=== PATIENT | female | born 1945 | race Caucasian/White ===

== ENCOUNTER 2023-02-17 10:55 | Emergency (ER) | payer OTHER, SELFPAY ==
[2023-02-17] VITALS (11 sets, daily range): BP systolic 144–194; BP diastolic 70–98; PULSE 66–79; RESP 16–33; TEMP 36.6–37.2; O2SAT 94–99; BMI 20.7
--- NOTE | 2023-02-17 11:28 | PC.NURSE ---
Pt came to the emergency dept today with daughter because she has been feeling increasingly ill since 02/14/2023. Pt states that she has been feeling weak and tired and has been struggling with a cough. Daughter is at bedside and reports that everyone has been sick at their house, but today pt has been slightly confused, weak, and vomiting. Daughter also reports that pt has been more lethargic than normal and fainted. Daughter is concerned for dehydration. Pt VS WNL. Pt answers questions appropriately. Pt afebrile.
--- NOTE | 2023-02-17 12:01 | DI.RAD.S_ITS ---
PROCEDURE: XR CHEST 1V INDICATIONS: chest pain TECHNIQUE: One view of the chest was acquired. COMPARISON: None. FINDINGS: Surgical changes and devices: None. Lungs and pleura: Lungs are clear. No pleural effusions or pneumothorax. Mediastinum: Mediastinal contours appear normal. Heart size is normal. Bones and chest wall: No suspicious bony lesions. Overlying soft tissues appear unremarkable. IMPRESSION: No acute cardiopulmonary abnormality is seen. Dictated by: Morgan Odonnell M.D. on 02/17/2023 at 13:42 Approved by: Morgan Odonnell M.D. on 02/17/2023 at 13:42
[2023-02-17 12:13] LABS: Add Manual Diff / Slide Review NO; Basophils Absolute Auto 0 /uL (0-100); Basophils Percent Auto 0.7 % (0-2); Eosinophils Absolute Auto 0 /uL (0-450); Eosinophils Percent Auto 0.6 % (2-4); Hematocrit 40.5 % (36-46); Hemoglobin 14.1 g/dL (12.0-16.0); Lymphocytes Absolute Auto 900 /uL (1100-4500); Lymphocytes Percent Auto 25.8 % (25-40); Mean Corpuscular HGB Conc 34.8 % (30-36); Mean Corpuscular Hemoglobin 32.5 PG (26-34); Mean Corpuscular Volume 93.3 fL (80-100); Monocytes Absolute Auto 500 /uL (0-900); Monocytes Percent Auto 14.8 % (3-14); Neutrophils Absolute Auto 2000 /uL (1500-7000); Neutrophils Percent Auto 58.1 % (50-75); Platelet Count 239 X10^3/uL (150-400); Red Blood Cell Count 4.34 X10^6/uL (4.0-5.2); Red Cell Distribution Width 11.9 % (11.6-14.8); White Blood Cell Count 3.4 X10^3/uL (4.5-11.0)
[2023-02-17] MEDS: SODIUM CHLORIDE 0.9% 1,000 ML 1000 ML IV (12:14)
[2023-02-17 12:18] LABS: Alanine Aminotransferase 23 IU/L (<35); Albumin 4.6 g/dL (3.5-5.0); Albumin Globulin Ratio 1.4 (1.0-2.8); Alkaline Phosphatase 63 U/L (38-126); Aspartate Aminotransferase 29 IU/L (14-36); BUN Creatinine Ratio 13.9 (6-22); Bilirubin Total 0.8 mg/dL (0.2-1.3); Blood Urea Nitrogen 11 mg/dL (7-17); Calcium 9.8 mg/dL (8.4-10.2); Carbon Dioxide 29 mmol/L (22-32); Chloride 95 mmol/L (98-107); Estimated Glomerular Filt Rate > 60 mL/min (>60); Globulin 3.2 g/dL (1.7-4.1); Glucose 121 mg/dL (80-110); HEMOLYSIS < 15 (0-50); Potassium 3.7 mmol/L (3.4-5.1); Sodium 136 mmol/L (137-145); Total Protein 7.8 g/dL (6.3-8.2)
[2023-02-17 12:23] LABS: Appearance Urine UA CLEAR; Bilirubin Urine UA NEGATIVE (NEGATIVE); Color Urine UA YELLOW; Glucose Urine UA NEGATIVE (Negative); Ketones Urine UA NEGATIVE (NEGATIVE); Leukocyte Esterase Urine UA NEGATIVE (NEGATIVE); Nitrite Urine UA NEGATIVE (Negative); Occult Blood Urine UA TRACE-INTACT (Negative); Protein Urine UA NEGATIVE (Negative); Urobilinogen Urine UA 0.2 E.U./dL (0.2); pH Urine UA 7.5 (4.5-8.0)
[2023-02-17 12:26] LABS: RBC Urine 0-1/HPF (0-5/HPF)
[2023-02-17 12:27] LABS: Bacteria Urine None Seen; Culture Indicated Urine Cult Not Indicated; Squamous Epithelial Cell Urine 1-5 /HPF (0-5/HPF); WBC Urine None Seen (0-5/HPF)
--- NOTE | 2023-02-17 17:30 | ED.WEAKNESS ---
HPI - Weakness General Chief complaint: Weakness Stated complaint: dehydration, fainting Time Seen by Provider: 02/17/23 11:14 Source: patient Mode of arrival: Family Vehicle History of Present Illness HPI Narrative: 77-year-old female brought in by daughter with a chief complaint of generalized weakness fatigue and nausea as also has a headache. Had been ongoing for about a week, during this time has also had a couple of episodes of syncope while standing. She has not having chest pain or shortness of breath. She is endorsing urinary frequency. Past medical history includes hysterectomy and appendectomy recording chronic constipation denies active medical problems at present. Does have a primary care provider in the counter. Has also had some URI symptoms recently. History is obtained from the patient, her daughter is present and contributes to history Related Data Home Medications Medication Instructions Recorded Confirmed aspirin 81 mg tablet,delayed 81 mg PO DAILY 07/19/19 07/19/19 release (Adult Low Dose Aspirin) loratadine 10 mg tablet (Claritin) 10 mg PO DAILY 07/19/19 07/19/19 multivitamin (Multiple Vitamins 1 tab PO DAILY 07/19/19 07/19/19 tablet) Previous Rx's Medication Instructions Recorded ondansetron HCl 4 mg tablet 4 mg PO Q6H PRN nausea and 02/17/23 vomiting #7 tabs Allergies Allergy/AdvReac Type Severity Reaction Status Date / Time venom-honey bee Allergy Severe Anaphylaxis Verified 02/17/23 11:11 Penicillins [PENICILLINS] Allergy Unknown Unverified 02/17/23 11:11 YELLOW JACKET STINGS Allergy Intermediate HIVES Uncoded 02/17/23 11:11 Patient History Social History Smoking Status: Never smoker Smoking Status: Never smoker alcohol intake frequency: 0-2 drinks per day Substance Use Type: does not use Exam Narrative Exam Narrative: Alert no acute distress Initial Vital Signs Initial Vital Signs: Vital Signs Temperature 97.8 F 02/17/23 11:07 Pulse Rate 79 02/17/23 11:07 Respiratory Rate 16 02/17/23 11:07 Blood Pressure 144/70 H 02/17/23 11:07 Pulse Oximetry 94 02/17/23 11:07 Oxygen Delivery Method Room Air 02/17/23 11:07 HENMT Head: normocephalic and atraumatic Eyes Pupils: PERRL EOM: EOM intact bilaterally Neck Other: Neck is supple and nontender Resp Effort & Inspection: normal respiratory effort Auscultation: clear to auscultation bilaterally Cardio Other: Regular rhythm rate no murmur or gallop GI Other: Abdomen is soft and nontender no pulsatile mass normal bowel sounds Skin General: dry skin and warm Neuro Other: Alert oriented moving all 4 extremities spontaneously and equally speech is clear no facial droop or asymmetry Course Orders Ordered: ED Orders 02/17/23 11:06 Complete Blood Count AUTO DIFF Stat Comprehensive Metabolic Panel Stat 02/17/23 11:15 EKG-12 Lead Stat 02/17/23 12:01 XR chest 1V Stat 02/17/23 12:10 Urinalysis and Microscopic Stat Discontinued Medications Sodium Chloride (Normal Saline 0.9%) 1,000 mls @ 1,000 mls/hr IV BOLUS ONE Stop: 02/17/23 13:00 Last Infusion: 02/17/23 13:50 Dose: Infused Documented By: Admin: 02/17/23 12:14 Dose: 1,000 mls/hr Documented By: FORTINO Vital Signs Vital signs: Vital Signs - 8 hr 02/17/23 11:07 02/17/23 11:10 02/17/23 11:24 Temperature 97.8 F Pulse Rate 79 73 Respiratory Rate 16 Blood Pressure 144/70 H 177/80 H Pulse Oximetry 94 99 Oxygen Delivery Method Room Air 02/17/23 11:24 02/17/23 11:30 02/17/23 11:30 Temperature Pulse Rate 78 71 Respiratory Rate Blood Pressure 168/70 H Pulse Oximetry 96 98 Oxygen Delivery Method 02/17/23 12:00 02/17/23 12:00 02/17/23 12:15 Temperature Pulse Rate 67 Respiratory Rate Blood Pressure 194/84 H 160/81 H Pulse Oximetry 98 Oxygen Delivery Method 02/17/23 12:15 02/17/23 12:30 02/17/23 12:30 Temperature Pulse Rate 66 67 Respiratory Rate Blood Pressure 155/74 H Pulse Oximetry 95 98 Oxygen Delivery Method 02/17/23 13:00 02/17/23 13:00 02/17/23 13:30 Temperature Pulse Rate 66 67 Respiratory Rate 20 31 H Blood Pressure 158/98 H Pulse Oximetry 98 98 Oxygen Delivery Method 02/17/23 13:30 02/17/23 14:00 02/17/23 14:31 Temperature 98.9 F Pulse Rate 75 74 Respiratory Rate 33 H 20 Blood Pressure 174/73 H 170/70 H Pulse Oximetry 94 98 Oxygen Delivery Method Room Air MDM - Weakness Lab Data Lab results narrative: CBC with diff CMP and urinalysis are unremarkable 02/17/23 11:06 02/17/23 11:06 Labs: Lab Results 02/17/23 02/17/23 Range/Units 11:06 12:10 WBC 3.4 L (4.5-11.0) X10^3/uL RBC 4.34 (4.0-5.2) X10^6/uL Hgb 14.1 (12.0-16.0) g/dL Hct 40.5 (36-46) % MCV 93.3 (80-100) fL MCH 32.5 (26-34) PG MCHC 34.8 (30-36) % RDW 11.9 (11.6-14.8) % Plt Count 239 (150-400) X10^3/uL Neut % (Auto) 58.1 (50-75) % Lymph % (Auto) 25.8 (25-40) % [place] % (Auto) 14.8 H (3-14) % Eos % (Auto) 0.6 L (2-4) % Baso % (Auto) 0.7 (0-2) % Neut # (Auto) 2000 (8950-9418) /uL Lymph # (Auto) 900 L (3108-6925) /uL [place] # (Auto) 500 (0-900) /uL Eos # (Auto) 0 (0-450) /uL Baso # (Auto) 0 (0-100) /uL Sodium 136 L (137-145) mmol/L Potassium 3.7 (3.4-5.1) mmol/L Chloride 95 L (98-107) mmol/L Carbon Dioxide 29 (22-32) mmol/L BUN 11 (7-17) mg/dL Creatinine 0.79 (0.52-1.04) mg/dL Estimated GFR > 60 (>60) mL/min BUN/Creatinine Ratio 13.9 (6-22) Glucose 121 H (80-110) mg/dL Calcium 9.8 (8.4-10.2) mg/dL Total Bilirubin 0.8 (0.2-1.3) mg/dL AST 29 (14-36) IU/L ALT 23 (<35) IU/L Alkaline Phosphatase 63 (38-126) U/L Total Protein 7.8 (6.3-8.2) g/dL Albumin 4.6 (3.5-5.0) g/dL Globulin 3.2 (1.7-4.1) g/dL Albumin/Globulin Ratio 1.4 (1.0-2.8) Urine Color Yellow Urine Appearance Clear Urine pH 7.5 (4.5-8.0) Ur Specific [place] 1.010 (1.000-1.035) Urine Protein Negative (Negative) Urine Glucose (UA) Negative (Negative) g/dL Urine Ketones Negative (NEGATIVE) Urine Occult Blood Trace-intact (Negative) Urine Nitrate Negative (Negative) Urine Bilirubin Negative (NEGATIVE) Urine Urobilinogen 0.2 (0.2) E.U./dL Ur Leukocyte Esterase Negative (NEGATIVE) Urine RBC 0-1/hpf (0-5/HPF) Urine WBC None seen (0-5/HPF) Ur Squamous Epith Cells 1-5 /hpf (0-5/HPF) Urine Bacteria None seen (None) Ur Culture Indicated? Cult not indicated Imaging Data Chest x-ray: My Impression: Independent review of chest x-ray showed no acute disease Radiologist Impression: Radiology report indicates no acute cardiopulmonary disease ECG Data Interpretation: EKG shows normal sinus rhythm at [address] segment changes, poor R-wave progression intervals are normal no pre-excitation [time] EKG is normal sinus rhythm rate [ ] and free of any signs of ischemia or ectopy. No ST segmental elevation or depression. No T wave inversions MDM Narrative Medical decision making narrative: 77-year-old female who is feeling unwell for about a week, has had a couple of episodes of syncope, no clear infectious symptoms. Differential is broad but includes infection, with sepsis, GI bleed, cardiac dysrhythmia, electrolyte disturbance dehydration from an adequate oral intake. Overall workup today is reassuring. No major electrolyte disturbance no evidence of a significant infection no evidence of dysrhythmia are identified. Patient was discharged to home encouraged to get more fluids and follow up with her primary care provider. Indications for return to the emergency department were reviewed the with the patient and her family. Discharge Plan Departure Patient Disposition: Home Clinical Impression: Nausea Syncope Qualifiers: Syncope type: unspecified Qualified Code(s): R55 - Syncope and collapse Instructions: DI for Dehydration -- Adult, DI for Nausea -- Adult Activity Restrictions/Additional Instructions: Emergency department workup today is reassuring. No serious cause for your symptoms of headache nausea and fainting is identified. I think it is safe for you to go home. I have added ondansetron to use as needed for nausea and vomiting. Get adequate fluids, sometimes frequent small amounts are better. Continue previous home medications. Follow up soon with her primary care provider. If you are feeling faint, make sure that you sit down and perhaps even lie down soon to avoid falling. If you are having worsening symptoms such as chest pain shortness of breath severe headache uncontrolled vomiting or abdominal pain recheck in the emergency department. Prescriptions: New ondansetron HCl 4 mg tablet 4 mg PO Q6H PRN (Reason: nausea and vomiting) Qty: 7 0RF No Action multivitamin [Multiple Vitamins] Tablet 1 tab PO DAILY loratadine [Claritin] 10 mg tablet 10 mg PO DAILY aspirin [Adult Low Dose Aspirin] 81 mg tablet,delayed release (DR/EC) 81 mg PO DAILY Referrals: Martha Alvarado PA-C [Primary Care Provider] - Stand Alone Forms: Patient Portal/API
== END 2023-02-17 14:32 | disposition home or self-care (01) ==
PROVIDERS: Emergency Provider Emergency Medicine; PCP Student in an Organized Health Care Education/Training Program
DX: R55 Syncope and collapse (principal); R11.0 Nausea; R51.9 Headache, unspecified
CPT/HCPCS: 36415; 71045; 80053; 81001; 85025; 93005; 96360; 96361; 99284

== ENCOUNTER 2023-03-22 14:37 | Emergency (ER) | payer MEDICARE, SELFPAY ==
[2023-03-22] VITALS (13 sets, daily range): BP systolic 153–178; BP diastolic 66–74; PULSE 64–89; RESP 13–22; TEMP 36.6; O2SAT 94–99; BMI 18.6
[2023-03-22 16:12] LABS: Add Manual Diff / Slide Review NO; Basophils Absolute Auto 0 /uL (0-100); Basophils Percent Auto 0.5 % (0-2); Eosinophils Absolute Auto 0 /uL (0-450); Eosinophils Percent Auto 0.3 % (2-4); Hematocrit 37.8 % (36-46); Lymphocytes Absolute Auto 1400 /uL (1100-4500); Lymphocytes Percent Auto 16.4 % (25-40); Mean Corpuscular HGB Conc 34.4 % (30-36); Mean Corpuscular Hemoglobin 31.6 PG (26-34); Mean Corpuscular Volume 91.9 fL (80-100); Monocytes Absolute Auto 800 /uL (0-900); Monocytes Percent Auto 9.2 % (3-14); Neutrophils Absolute Auto 6400 /uL (1500-7000); Neutrophils Percent Auto 73.6 % (50-75); Platelet Count 321 X10^3/uL (150-400); Red Blood Cell Count 4.11 X10^6/uL (4.0-5.2); Red Cell Distribution Width 12.1 % (11.6-14.8); White Blood Cell Count 8.7 X10^3/uL (4.5-11.0)
--- NOTE | 2023-03-22 16:20 | DI.CT.S_ITS ---
PROCEDURE: CT HEAD/BRAIN WO CON INDICATIONS: alt mental status/confusion, no trauma or last known well. TECHNIQUE: Noncontrast 4.5 mm thick angled axial sections acquired from the foramen magnum to the vertex, with coronal and sagittal reformats. For radiation dose reduction, the following was used: automated exposure control, adjustment of mA and/or kV according to patient size. COMPARISON: None. FINDINGS: Image quality: Diagnostic. CSF spaces: Basal cisterns are patent. No extra-axial fluid collections. The ventricles are symmetric in size and shape. Brain: No intracranial bleeds or masses. There is cerebral volume loss for age, with resultant ventricular and sulcal prominence. There are periventricular and deep white matter chronic small vessel ischemic changes. There is intracranial internal carotid artery atherosclerosis. Skull and face: Calvarium and visualized facial bones appear intact, without suspicious lesions. Sinuses: Near complete opacification of the maxillary sinuses. IMPRESSION: No acute intracranial pathology. Dictated by: Srinivas Araiza M.D. on 03/22/2023 at 16:48 Approved by: Srinivas Araiza M.D. on 03/22/2023 at 16:49
[2023-03-22 16:27] LABS: UR Morphine/Opiate cutoff 300 Negative (Negative); Ur Creatinine Normal (Normal); Ur Specific Gravity Normal (Normal); Urine Amphetamines Negative (Negative); Urine Barbiturates Negative (Negative); Urine Benzodiazepines Negative (Negative); Urine Cocaine Negative (Negative); Urine MDMA Negative (Negative); Urine Methadone Negative (Negative); Urine Methamphetamines Negative (Negative); Urine Oxycodone Negative (Negative); Urine Phencyclidine Negative (Negative); Urine Tetrahydrocannabinol Negative (Negative); Urine Tricyclic Antidepressant Negative (Negative); Urine pH Normal (Normal)
[2023-03-22 16:28] LABS: Appearance Urine UA CLEAR; Bilirubin Urine UA NEGATIVE (NEGATIVE); Color Urine UA YELLOW; Glucose Urine UA NEGATIVE (Negative); Ketones Urine UA 1+ (NEGATIVE); Leukocyte Esterase Urine UA TRACE (NEGATIVE); Nitrite Urine UA NEGATIVE (Negative); Occult Blood Urine UA 2+ (Negative); Protein Urine UA NEGATIVE (Negative); Urobilinogen Urine UA 0.2 E.U./dL (0.2)
[2023-03-22 16:30] LABS: Alanine Aminotransferase 17 IU/L (<35); Albumin 4.7 g/dL (3.5-5.0); Albumin Globulin Ratio 1.4 (1.0-2.8); Alkaline Phosphatase 60 U/L (38-126); Aspartate Aminotransferase 27 IU/L (14-36); BUN Creatinine Ratio 13.5 (6-22); Blood Urea Nitrogen 12 mg/dL (7-17); Calcium 9.9 mg/dL (8.4-10.2); Carbon Dioxide 30 mmol/L (22-32); Chloride 94 mmol/L (98-107); Estimated Glomerular Filt Rate > 60 mL/min (>60); Globulin 3.3 g/dL (1.7-4.1); Glucose 98 mg/dL (80-110); HEMOLYSIS < 15 (0-50); Lipase 480 U/L (23-300); Potassium 3.2 mmol/L (3.4-5.1); Sodium 133 mmol/L (137-145)
[2023-03-22 16:43] LABS: Bacteria Urine Occasional (0-1); Culture Indicated Urine Specimen Cultured; RBC Urine 0-1/HPF (0-5/HPF); Squamous Epithelial Cell Urine 1-5 /HPF (0-5/HPF); Urine Volume 10mL (spun); WBC Urine 0-1/HPF (0-5/HPF)
[2023-03-22 17:07] LABS: Ammonia (NH3) < 9 umol/L (9-30)
--- NOTE | 2023-03-22 17:36 | ED.ABDPAIN ---
HPI - Abdominal Pain General Chief Complaint: Abdominal Pain Stated Complaint: abd pain. nausea, feels like poisoned, axp 1 month Time Seen by Provider: 03/22/23 17:35 Source: patient Mode of arrival: Wheelchair Limitations: no limitations Related Data Home Medications Medication Instructions Recorded Confirmed aspirin 81 mg tablet,delayed 81 mg PO DAILY 07/19/19 07/19/19 release (Adult Low Dose Aspirin) loratadine 10 mg tablet (Claritin) 10 mg PO DAILY 07/19/19 07/19/19 multivitamin (Multiple Vitamins 1 tab PO DAILY 07/19/19 07/19/19 tablet) Previous Rx's Medication Instructions Recorded ondansetron HCl 4 mg tablet 4 mg PO Q6H PRN nausea and 02/17/23 vomiting #7 tabs Allergies Allergy/AdvReac Type Severity Reaction Status Date / Time venom-honey bee Allergy Severe Anaphylaxis Verified 03/22/23 14:45 Penicillins [PENICILLINS] Allergy Unknown Verified 03/22/23 14:45 YELLOW JACKET STINGS Allergy Intermediate HIVES Uncoded 03/22/23 14:45 Review of Systems Review of Systems ROS Unobtainable: All systems reviewed & are unremarkable except as noted in HPI and below Patient History Social History Smoking Status: Never smoker Smoking Status: Never smoker alcohol intake frequency: other Substance Use Type: does not use Exam Initial Vital Signs Initial Vital Signs: Vital Signs Temperature 98 F 03/22/23 14:41 Pulse Rate 89 03/22/23 14:41 Respiratory Rate 18 03/22/23 14:41 Blood Pressure 159/70 H 03/22/23 14:41 Pulse Oximetry 98 03/22/23 14:41 Oxygen Delivery Method Room Air 03/22/23 14:41 Course Orders Ordered: ED Orders 03/22/23 14:46 EKG-12 Lead Stat 03/22/23 15:57 Complete Blood Count AUTO DIFF Stat Comprehensive Metabolic Panel Stat Lipase Stat 03/22/23 16:17 Ammonia (NH3) Stat UA dip [Urinalysis Screen (Dip Only)] Stat Urine Culture Stat Urine Drug Screen, Rapid Stat Urine Microscopic Stat 03/22/23 16:20 CT head/brain wo con Stat Ondansetron HCl (Ondansetron 4 Mg/2 Ml Inj) 4 mg IV NOW PRN PRN Reason: Nausea And Vomiting Ondansetron HCl (Ondansetron 4 Mg Odt) 4 mg PO NOW PRN PRN Reason: Nausea And Vomiting Vital Signs Vital signs: Vital Signs - 8 hr 03/22/23 14:41 03/22/23 15:52 03/22/23 16:04 Temperature 98 F Pulse Rate 89 88 73 Respiratory Rate 18 18 22 Blood Pressure 159/70 H Pulse Oximetry 98 99 Oxygen Delivery Method Room Air 03/22/23 16:04 03/22/23 16:18 03/22/23 16:18 Temperature Pulse Rate 89 Respiratory Rate Blood Pressure 161/72 H 165/74 H Pulse Oximetry 98 Oxygen Delivery Method 03/22/23 16:40 03/22/23 17:00 Temperature Pulse Rate 82 70 Respiratory Rate Blood Pressure Pulse Oximetry 94 98 Oxygen Delivery Method Room Air MDM - Abdominal Pain Lab Data 03/22/23 15:57 03/22/23 15:57 Labs: Lab Results 03/22/23 03/22/23 03/22/23 Range/Units 15:57 16:17 16:17 WBC 8.7 (4.5-11.0) X10^3/uL RBC 4.11 (4.0-5.2) X10^6/uL Hgb 13.0 (12.0-16.0) g/dL Hct 37.8 (36-46) % MCV 91.9 (80-100) fL MCH 31.6 (26-34) PG MCHC 34.4 (30-36) % RDW 12.1 (11.6-14.8) % Plt Count 321 (150-400) X10^3/uL Neut % (Auto) 73.6 (50-75) % Lymph % (Auto) 16.4 L (25-40) % [place] % (Auto) 9.2 (3-14) % Eos % (Auto) 0.3 L (2-4) % Baso % (Auto) 0.5 (0-2) % Neut # (Auto) 6400 (7587-2491) /uL Lymph # (Auto) 1400 (1408-1349) /uL [place] # (Auto) 800 (0-900) /uL Eos # (Auto) 0 (0-450) /uL Baso # (Auto) 0 (0-100) /uL Sodium 133 L (137-145) mmol/L Potassium 3.2 L (3.4-5.1) mmol/L Chloride 94 L (98-107) mmol/L Carbon Dioxide 30 (22-32) mmol/L BUN 12 (7-17) mg/dL Creatinine 0.89 (0.52-1.04) mg/dL Estimated GFR > 60 (>60) mL/min BUN/Creatinine Ratio 13.5 (6-22) Glucose 98 (80-110) mg/dL Calcium 9.9 (8.4-10.2) mg/dL Total Bilirubin 1.0 (0.2-1.3) mg/dL AST 27 (14-36) IU/L ALT 17 (<35) IU/L Alkaline Phosphatase 60 (38-126) U/L Ammonia < 9 L (9-30) umol/L Total Protein 8.0 (6.3-8.2) g/dL Albumin 4.7 (3.5-5.0) g/dL Globulin 3.3 (1.7-4.1) g/dL Albumin/Globulin Ratio 1.4 (1.0-2.8) Lipase 480 H (23-300) U/L Urine Color Yellow Urine Appearance Clear Urine pH 7.0 Normal (4.5-8.0) Ur Specific [place] 1.010 (1.000-1.035) Urine Protein Negative (Negative) Urine Glucose (UA) Negative (Negative) g/dL Urine Ketones 1+ H (NEGATIVE) Urine Occult Blood 2+ H (Negative) Urine Nitrate Negative (Negative) Urine Bilirubin Negative (NEGATIVE) Urine Urobilinogen 0.2 (0.2) E.U./dL Ur Leukocyte Esterase Trace H (NEGATIVE) Urine RBC 0-1/hpf (0-5/HPF) Urine WBC 0-1/hpf (0-5/HPF) Ur Squamous Epith Cells 1-5 /hpf (0-5/HPF) Urine Bacteria Occasional (0-1) (None) Ur Culture Indicated? Specimen cultured Vol Urine Centrifuged 10ml (spun) U Opiates 300ng/mL cut Negative (Negative) Ur Oxycodone Screen Negative (Negative) Urine Methadone Screen Negative (Negative) Ur Barbiturates Screen Negative (Negative) U Tricyclic Antidepress Negative (Negative) Ur Phencyclidine Scrn Negative (Negative) Ur Amphetamines Screen Negative (Negative) U Methamphetamines Scrn Negative (Negative) Ur MDMA Scrn (Ecstasy) Negative (Negative) U Benzodiazepines Scrn Negative (Negative) Urine Cocaine Screen Negative (Negative) U Marijuana (THC) Screen Negative (Negative) Urine Specific [place] Normal (Normal) Ur Creatinine Normal (Normal) Discharge Plan Departure Prescriptions: No Action multivitamin [Multiple Vitamins] Tablet 1 tab PO DAILY loratadine [Claritin] 10 mg tablet 10 mg PO DAILY aspirin [Adult Low Dose Aspirin] 81 mg tablet,delayed release (DR/EC) 81 mg PO DAILY ondansetron HCl 4 mg tablet 4 mg PO Q6H PRN (Reason: nausea and vomiting) Qty: 7 0RF Referrals: Martha Alvarado PAJacquieC [Primary Care Provider] -
--- NOTE | 2023-03-22 18:14 | ED_ITS ---
HPI - Abdominal Pain General Chief Complaint: Abdominal Pain Stated Complaint: abd pain. nausea, feels like poisoned, axp 1 month Time Seen by Provider: 03/22/23 17:35 Source: patient Mode of arrival: Wheelchair History of Present Illness HPI narrative: 77-year-old female presents by private vehicle from home for 1 month of nausea, decreased appetite, generalized abdominal cramping that is worse after eating. Patient states that she has lost approximately 20 lb since symptom onset due to lack of p.o. intake. She states that she wants to eat but the nausea makes her stomach cramp and then she does not eat. She has not taken any medications at home for this or seen a primary care doctor for this complaint. Related Data Home Medications Medication Instructions Recorded Confirmed aspirin 81 mg tablet,delayed 81 mg PO DAILY 07/19/19 07/19/19 release (Adult Low Dose Aspirin) loratadine 10 mg tablet (Claritin) 10 mg PO DAILY 07/19/19 07/19/19 multivitamin (Multiple Vitamins 1 tab PO DAILY 07/19/19 07/19/19 tablet) Previous Rx's Medication Instructions Recorded ondansetron HCl 4 mg tablet 4 mg PO Q6H PRN nausea and 02/17/23 vomiting #7 tabs metoclopramide HCl 10 mg tablet 10 mg PO Q6H PRN nausea and 03/22/23 (Reglan) vomiting #30 tabs metoclopramide HCl 10 mg tablet 10 mg PO Q6H PRN nausea and 03/22/23 (Reglan) vomiting #30 tabs Allergies Allergy/AdvReac Type Severity Reaction Status Date / Time venom-honey bee Allergy Severe Anaphylaxis Verified 03/22/23 14:45 Penicillins [PENICILLINS] Allergy Unknown Verified 03/22/23 14:45 YELLOW JACKET STINGS Allergy Intermediate HIVES Uncoded 03/22/23 14:45 Review of Systems Review of Systems Narrative: Negative except as noted above Patient History Social History Smoking Status: Never smoker Smoking Status: Never smoker alcohol intake frequency: 0-2 drinks per day Substance Use Type: does not use Exam Initial Vital Signs Initial Vital Signs: Vital Signs Temperature 98 F 03/22/23 14:41 Pulse Rate 89 03/22/23 14:41 Respiratory Rate 18 03/22/23 14:41 Blood Pressure 159/70 H 03/22/23 14:41 Pulse Oximetry 98 03/22/23 14:41 Oxygen Delivery Method Room Air 03/22/23 14:41 Const: Awake, alert, no acute distress, nontoxic appearing Eyes: PERRL, EOMI, conjunctiva normal ENT: Atraumatic, dentition normal, mucous membranes moist Cardiac: regular rate, regular rhythm RESP: unlabored, clear bilaterally, no wheezing GI: Atraumatic, soft, nontender, nondistended, no rebound, no guarding MSK: Atraumatic, full range of motion, pulses equal Skin: Warm, Dry, intact, no rashes Neuro: AO x3, CN II-XII grossly intact, moves all extremities Psych: affect normal, mood normal, not suicidal, not homicidal Course Orders Ordered: ED Orders 03/22/23 15:57 Complete Blood Count AUTO DIFF Stat Comprehensive Metabolic Panel Stat Lipase Stat 03/22/23 16:17 Ammonia (NH3) Stat UA dip [Urinalysis Screen (Dip Only)] Stat Urine Culture Stat Urine Drug Screen, Rapid Stat Urine Microscopic Stat 03/22/23 16:20 CT head/brain wo con Stat 03/22/23 18:27 CT abdomen pelvis w con Stat Discontinued Medications Ondansetron HCl (Ondansetron 4 Mg/2 Ml Inj) 4 mg IV NOW PRN PRN Reason: Nausea And Vomiting Ondansetron HCl (Ondansetron 4 Mg Odt) 4 mg PO NOW PRN PRN Reason: Nausea And Vomiting Vital Signs Vital signs: Vital Signs - 8 hr 03/22/23 16:40 03/22/23 17:00 03/22/23 17:12 Pulse Rate 82 70 68 Respiratory Rate Blood Pressure Pulse Oximetry 94 98 98 Oxygen Delivery Method Room Air 03/22/23 17:12 03/22/23 17:29 03/22/23 17:29 Pulse Rate 71 Respiratory Rate Blood Pressure 153/68 H 169/74 H Pulse Oximetry 98 Oxygen Delivery Method 03/22/23 17:30 03/22/23 18:00 03/22/23 18:28 Pulse Rate 69 64 79 Respiratory Rate 13 14 19 Blood Pressure Pulse Oximetry 98 97 98 Oxygen Delivery Method Room Air 03/22/23 18:28 03/22/23 18:30 03/22/23 18:30 Pulse Rate 78 Respiratory Rate 15 Blood Pressure 178/73 H 174/74 H Pulse Oximetry 98 Oxygen Delivery Method 03/22/23 18:38 03/22/23 18:38 Pulse Rate 74 Respiratory Rate Blood Pressure 163/66 H Pulse Oximetry 98 Oxygen Delivery Method Room Air MDM - Abdominal Pain Lab Data 03/22/23 15:57 03/22/23 15:57 Labs: Lab Results 03/22/23 03/22/23 03/22/23 Range/Units 15:57 16:17 16:17 WBC 8.7 (4.5-11.0) X10^3/uL RBC 4.11 (4.0-5.2) X10^6/uL Hgb 13.0 (12.0-16.0) g/dL Hct 37.8 (36-46) % MCV 91.9 (80-100) fL MCH 31.6 (26-34) PG MCHC 34.4 (30-36) % RDW 12.1 (11.6-14.8) % Plt Count 321 (150-400) X10^3/uL Neut % (Auto) 73.6 (50-75) % Lymph % (Auto) 16.4 L (25-40) % [place] % (Auto) 9.2 (3-14) % Eos % (Auto) 0.3 L (2-4) % Baso % (Auto) 0.5 (0-2) % Neut # (Auto) 6400 (4846-3560) /uL Lymph # (Auto) 1400 (4011-0641) /uL [place] # (Auto) 800 (0-900) /uL Eos # (Auto) 0 (0-450) /uL Baso # (Auto) 0 (0-100) /uL Sodium 133 L (137-145) mmol/L Potassium 3.2 L (3.4-5.1) mmol/L Chloride 94 L (98-107) mmol/L Carbon Dioxide 30 (22-32) mmol/L BUN 12 (7-17) mg/dL Creatinine 0.89 (0.52-1.04) mg/dL Estimated GFR > 60 (>60) mL/min BUN/Creatinine Ratio 13.5 (6-22) Glucose 98 (80-110) mg/dL Calcium 9.9 (8.4-10.2) mg/dL Total Bilirubin 1.0 (0.2-1.3) mg/dL AST 27 (14-36) IU/L ALT 17 (<35) IU/L Alkaline Phosphatase 60 (38-126) U/L Ammonia < 9 L (9-30) umol/L Total Protein 8.0 (6.3-8.2) g/dL Albumin 4.7 (3.5-5.0) g/dL Globulin 3.3 (1.7-4.1) g/dL Albumin/Globulin Ratio 1.4 (1.0-2.8) Lipase 480 H (23-300) U/L Urine Color Yellow Urine Appearance Clear Urine pH 7.0 Normal (4.5-8.0) Ur Specific [address] 1.010 (1.000-1.035) Urine Protein Negative (Negative) Urine Glucose (UA) Negative (Negative) g/dL Urine Ketones 1+ H (NEGATIVE) Urine Occult Blood 2+ H (Negative) Urine Nitrate Negative (Negative) Urine Bilirubin Negative (NEGATIVE) Urine Urobilinogen 0.2 (0.2) E.U./dL Ur Leukocyte Esterase Trace H (NEGATIVE) Urine RBC 0-1/hpf (0-5/HPF) Urine WBC 0-1/hpf (0-5/HPF) Ur Squamous Epith Cells 1-5 /hpf (0-5/HPF) Urine Bacteria Occasional (0-1) (None) Ur Culture Indicated? Specimen cultured Vol Urine Centrifuged 10ml (spun) U Opiates 300ng/mL cut Negative (Negative) Ur Oxycodone Screen Negative (Negative) Urine Methadone Screen Negative (Negative) Ur Barbiturates Screen Negative (Negative) U Tricyclic Antidepress Negative (Negative) Ur Phencyclidine Scrn Negative (Negative) Ur Amphetamines Screen Negative (Negative) U Methamphetamines Scrn Negative (Negative) Ur MDMA Scrn (Ecstasy) Negative (Negative) U Benzodiazepines Scrn Negative (Negative) Urine Cocaine Screen Negative (Negative) U Marijuana (THC) Screen Negative (Negative) Urine Specific [address] Normal (Normal) Ur Creatinine Normal (Normal) [facility] Narrative Medical decision making narrative: Nontoxic appearing patient presenting with 1 month of symptoms. Hemodynamically stable, abdomen is soft with no significant tenderness to deep palpation. Despite patient's reports of anorexia with marked weight loss electrolytes are fairly normal, sodium 133, potassium 3.2, chloride 94, creatinine 0.89, GFR greater than 60. CT of the abdomen shows no acute findings, incidental diverticulosis noted. Patient has been at bedside notified of all findings of labs and imaging, I counseled that I do not know the cause of the patient's persistent nausea or decrease in appetite, however no indication for admission at this time. We will trial antiemetics, which were sent to pharmacy of choice. I strongly counseled the patient that she would need to follow up with primary care physician, and recommended possible GI evaluation. Patient states that they will call her primary care physician for a GI referral. ED return precautions discussed at bedside. Patient expressed understanding of the plan and is in agreement at this time. All questions answered at the time of discharge. Discharge Plan Departure Patient Disposition: Home Clinical Impression: Abdominal pain Instructions: DI for Abdominal Pain-Adult Prescriptions: New metoclopramide HCl [Reglan] 10 mg tablet 10 mg PO Q6H PRN (Reason: nausea and vomiting) Qty: 30 0RF metoclopramide HCl [Reglan] 10 mg tablet 10 mg PO Q6H PRN (Reason: nausea and vomiting) Qty: 30 0RF No Action multivitamin [Multiple Vitamins] Tablet 1 tab PO DAILY loratadine [Claritin] 10 mg tablet 10 mg PO DAILY aspirin [Adult Low Dose Aspirin] 81 mg tablet,delayed release (DR/EC) 81 mg PO DAILY ondansetron HCl 4 mg tablet 4 mg PO Q6H PRN (Reason: nausea and vomiting) Qty: 7 0RF Referrals: Martha Alvarado PA-C [Primary Care Provider] - Stand Alone Forms: Patient Portal/API
--- NOTE | 2023-03-22 18:27 | DI.CT.S_ITS ---
PROCEDURE: CT ABDOMEN PELVIS W CON INDICATIONS: LOWER ABD PAIN, POSTPRANDIAL PAIN [id number] TECHNIQUE: After the administration of intravenous contrast, axial sections acquired from the lung bases to the pubic symphysis. Coronal and sagittal reformats were performed. For radiation dose reduction, the following was used: automated exposure control, adjustment of mA and/or kV according to patient size. COMPARISON: None. FINDINGS: Image quality: Diagnostic. Lower Chest: No significant findings. ABDOMEN: Liver: No solid mass. Liver measures 17.6 cm with mild steatosis. Gallbladder: No radiopaque gallstones or wall thickening. Biliary ducts: No biliary dilation. Pancreas: No ductal dilation. Spleen: Size is within normal limits. Adrenal Glands: No adrenal nodules. Kidneys and Ureters: No hydronephrosis. No solid mass. No complex renal cystic lesion which requires follow up. Simple bilateral renal cysts. Stomach and Bowel: Normal colonic caliber, without significant wall thickening. Colonic diverticula are present. Peritoneum: No abnormal intraperitoneal fluid. No free air. Ventral Wall: No hernia. Abdominal Nodes: No retroperitoneal or mesenteric adenopathy by size criteria. Vessels: Aorta and inferior vena cava are normal in size. PELVIS: Pelvic Organs: Unremarkable. Bladder: Unremarkable. Pelvic Nodes: No enlarged lymph nodes. Miscellaneous: No inguinal hernias are seen. Bones: No aggressive osseous abnormality. IMPRESSION: No acute intra-abdominal or pelvic process. Diverticulosis. Dictated by: Rosa Fay M.D. on 03/22/2023 at 18:50 Approved by: Rosa Fay M.D. on 03/22/2023 at 18:52
== END 2023-03-22 19:25 | disposition home or self-care (01) ==
PROVIDERS: Emergency Medicine; Emergency Provider Emergency Medicine; PCP Student in an Organized Health Care Education/Training Program
DX: R10.84 Generalized abdominal pain (principal)
CPT/HCPCS: 36415; 70450; 74177; 80053; 80305; 81003; 81015; 82140; 83690; 85025; 87086; 93005; 99283; 99284

== ENCOUNTER 2023-03-29 18:27 | Emergency (ER) | payer OTHER, SELFPAY ==
[2023-03-29 18:38] VITALS: BP 113/71; PULSE 85; RESP 14; TEMP 36.6; O2SAT 98; BMI 17.9
[2023-03-29 19:41] LABS: Add Manual Diff / Slide Review NO; Basophils Absolute Auto 0 /uL (0-100); Basophils Percent Auto 0.4 % (0-2); Eosinophils Absolute Auto 0 /uL (0-450); Eosinophils Percent Auto 0.5 % (2-4); Hematocrit 36.7 % (36-46); Hemoglobin 13.1 g/dL (12.0-16.0); Lymphocytes Absolute Auto 1400 /uL (1100-4500); Lymphocytes Percent Auto 17.4 % (25-40); Mean Corpuscular HGB Conc 35.6 % (30-36); Mean Corpuscular Hemoglobin 32.2 PG (26-34); Mean Corpuscular Volume 90.4 fL (80-100); Monocytes Absolute Auto 900 /uL (0-900); Monocytes Percent Auto 10.7 % (3-14); Neutrophils Absolute Auto 5700 /uL (1500-7000); Platelet Count 283 X10^3/uL (150-400); Red Blood Cell Count 4.06 X10^6/uL (4.0-5.2); Red Cell Distribution Width 12.4 % (11.6-14.8); White Blood Cell Count 8.1 X10^3/uL (4.5-11.0)
[2023-03-29] MEDS: SODIUM CHLORIDE 0.9% 1,000 ML 1000 ML IV ×2 (19:44→20:49)
[2023-03-29 20:21] LABS: Alanine Aminotransferase 21 IU/L (<35); Albumin 4.4 g/dL (3.5-5.0); Albumin Globulin Ratio 1.5 (1.0-2.8); Alkaline Phosphatase 59 U/L (38-126); Aspartate Aminotransferase 40 IU/L (14-36); BUN Creatinine Ratio 13.3 (6-22); Bilirubin Total 0.9 mg/dL (0.2-1.3); Blood Urea Nitrogen 16 mg/dL (7-17); Calcium 9.9 mg/dL (8.4-10.2); Carbon Dioxide 30 mmol/L (22-32); Chloride 93 mmol/L (98-107); Estimated Glomerular Filt Rate 47 mL/min (>60); Glucose 118 mg/dL (80-110); HEMOLYSIS < 15 (0-50); Lipase 252 U/L (23-300); Potassium 3.2 mmol/L (3.4-5.1); Sodium 132 mmol/L (137-145); Total Protein 7.4 g/dL (6.3-8.2)
--- NOTE | 2023-03-29 21:21 | ED.WEAKNESS ---
HPI - Weakness General Chief complaint: Weakness Stated complaint: no appetite, weakness Time Seen by Provider: 03/29/23 19:02 Source: patient Mode of arrival: Wheelchair History of Present Illness HPI Narrative: Patient is 77-year-old female with newly diagnosed presumed ulcer presents for the 3rd time to the emergency department since February 17. She has previously had blood work and a CT scan on March 22. She has since been seen by a provider who thought she an ulcer and was started on omeprazole and Carafate along with Reglan. Daughter at bedside very upset feels like she is wasting away. She actually has an appointment with GI provider in April for an EGD think there is another specialist appointment as well. Patient reports that she is feeling the best that she has an a long time she even ate a small amount of potato today which she feels is very abnormal for her. She has a little weak but no falling. No dizziness or lightheadedness. Related Data Home Medications Medication Instructions Recorded Confirmed aspirin 81 mg tablet,delayed 81 mg PO DAILY 07/19/19 07/19/19 release (Adult Low Dose Aspirin) loratadine 10 mg tablet (Claritin) 10 mg PO DAILY 07/19/19 07/19/19 multivitamin (Multiple Vitamins 1 tab PO DAILY 07/19/19 07/19/19 tablet) Previous Rx's Medication Instructions Recorded ondansetron HCl 4 mg tablet 4 mg PO Q6H PRN nausea and 02/17/23 vomiting #7 tabs metoclopramide HCl 10 mg tablet 10 mg PO Q6H PRN nausea and 03/22/23 (Reglan) vomiting #30 tabs metoclopramide HCl 10 mg tablet 10 mg PO Q6H PRN nausea and 03/22/23 (Reglan) vomiting #30 tabs Allergies Allergy/AdvReac Type Severity Reaction Status Date / Time venom-honey bee Allergy Severe Anaphylaxis Verified 03/29/23 18:44 Penicillins [PENICILLINS] Allergy Unknown Verified 03/29/23 18:44 YELLOW JACKET STINGS Allergy Intermediate HIVES Uncoded 03/22/23 14:45 Patient History Social History Smoking Status: Never smoker Smoking Status: Never smoker alcohol intake frequency: 0-2 drinks per day Substance Use Type: does not use Exam Initial Vital Signs Initial Vital Signs: Vital Signs Temperature 97.8 F 03/29/23 18:38 Pulse Rate 85 03/29/23 18:38 Respiratory Rate 14 03/29/23 18:38 Blood Pressure 113/71 03/29/23 18:38 Pulse Oximetry 98 03/29/23 18:38 Oxygen Delivery Method Room Air 03/29/23 18:38 GENERAL: Thin pleasant 77-year-old female and in no acute distress. HEENT: Head atraumatic,EOMI, pupils reactive, face symmetric, moist mucous membranes CARDIOVASCULAR: Regular rate and rhythm without murmurs, rubs or gallops. RESPIRATORY: Breath sounds equal bilaterally, no wheezes rales or rhonchi. ABDOMEN: Soft, nontender. Normoactive bowel sounds all 4 quadrants. No guarding or rebound. EXTREMITIES: Normal range of motion, no clubbing or edema. Neurovascularly intact NEUROLOGICAL: Alert and oriented x4.Normal gait and speech. SKIN: Warm, dry, no laceration, no petechiae, no rashes or lesions. Course Orders Ordered: ED Orders 03/29/23 19:30 Complete Blood Count AUTO DIFF Stat Comprehensive Metabolic Panel Stat Lipase Stat Discontinued Medications Sodium Chloride (Normal Saline 0.9%) 1,000 mls @ 1,000 mls/hr IV BOLUS ONE Stop: 03/29/23 20:02 Last Infusion: 03/29/23 20:49 Dose: Infused Documented By: Admin: 03/29/23 19:44 Dose: 1,000 mls/hr Documented By: KEHINDE Sodium Chloride (Normal Saline 0.9%) 1,000 mls @ 1,000 mls/hr IV BOLUS ONE Stop: 03/29/23 21:42 Last Infusion: 03/29/23 22:09 Dose: Infused Documented By: Admin: 03/29/23 20:49 Dose: 1,000 mls/hr Documented By: KEHINDE Ondansetron HCl (Ondansetron 4 Mg/2 Ml Inj) 4 mg IV NOW ONE Stop: 03/29/23 21:23 Last Admin: 03/29/23 21:42 Dose: 4 mg Documented By: KEHINDE Pantoprazole Sodium (Pantoprazole 40 Mg Vial) 40 mg IV NOW ONE Stop: 03/29/23 21:23 Last Admin: 03/29/23 21:41 Dose: 40 mg Documented By: DKB Vital Signs Vital signs: Vital Signs - 8 hr 03/29/23 18:38 03/29/23 22:18 Temperature 97.8 F Pulse Rate 85 77 Respiratory Rate 14 16 Blood Pressure 113/71 171/69 H Pulse Oximetry 98 96 Oxygen Delivery Method Room Air Room Air MDM - Weakness Lab Data 03/29/23 19:30 03/29/23 19:30 Labs: Lab Results 03/29/23 Range/Units 19:30 WBC 8.1 (4.5-11.0) X10^3/uL RBC 4.06 (4.0-5.2) X10^6/uL Hgb 13.1 (12.0-16.0) g/dL Hct 36.7 (36-46) % MCV 90.4 (80-100) fL MCH 32.2 (26-34) PG MCHC 35.6 (30-36) % RDW 12.4 (11.6-14.8) % Plt Count 283 (150-400) X10^3/uL Neut % (Auto) 71.0 (50-75) % Lymph % (Auto) 17.4 L (25-40) % [place] % (Auto) 10.7 (3-14) % Eos % (Auto) 0.5 L (2-4) % Baso % (Auto) 0.4 (0-2) % Neut # (Auto) 5700 (0590-7913) /uL Lymph # (Auto) 1400 (0656-0961) /uL [place] # (Auto) 900 (0-900) /uL Eos # (Auto) 0 (0-450) /uL Baso # (Auto) 0 (0-100) /uL Sodium 132 L (137-145) mmol/L Potassium 3.2 L (3.4-5.1) mmol/L Chloride 93 L (98-107) mmol/L Carbon Dioxide 30 (22-32) mmol/L BUN 16 (7-17) mg/dL Creatinine 1.20 H (0.52-1.04) mg/dL Estimated GFR 47 L (>60) mL/min BUN/Creatinine Ratio 13.3 (6-22) Glucose 118 H (80-110) mg/dL Calcium 9.9 (8.4-10.2) mg/dL Total Bilirubin 0.9 (0.2-1.3) mg/dL AST 40 H (14-36) IU/L ALT 21 (<35) IU/L Alkaline Phosphatase 59 (38-126) U/L Total Protein 7.4 (6.3-8.2) g/dL Albumin 4.4 (3.5-5.0) g/dL Globulin 3.0 (1.7-4.1) g/dL Albumin/Globulin Ratio 1.5 (1.0-2.8) Lipase 252 (23-300) U/L MDM Narrative Medical decision making narrative: Patient is 77-year-old female presents today with increasing weakness. She has had ongoing fatigue decreased appetite. She was seen evaluated here last week had CT and blood work done at that time she has since been seen by another provider started on omeprazole and Carafate thinks the other probably an ulcer. She is set up to see GI for an EGD but not for a few weeks. Daughter very concerned because she has not eating. Patient overall feels better today than she has previously but does feel little bit weak. Blood work has been reviewed she has potassium 3.2 which is similar to prior however creatinine is up-to-date 1.2 previously 0.89 no other electrolyte abnormalities. At this time no need for imaging. She is given 2 L of IV fluids Protonix and Zofran she had something to eat here in the ED she does not have any vomiting here. At this time attempted discussion with daughter to explain that there is no emergent need for a GI consult or emergent EGD however I do continue to recommend that she needs further workup. Encouraged patient to drink and stay hydrated. Discharge Plan Departure Patient Disposition: Home Clinical Impression: Dehydration Instructions: DI for Dehydration -- Adult Activity Restrictions/Additional Instructions: *You have been diagnosed with mild dehydration *What to do: At this time increase fluids as tolerated recommend Pedialyte or Gatorade also room recommend protein shakes such as ensure boost or make your own this will give your body some nutrients. You were currently on the correct medication for an ulcer this does take time I am happy that you are feeling a little bit better. I do agree you need further workup including an EGD and colonoscopy it sounds like bees arrangements have already been made. *Continue to take medications as directed *Follow up with your primary care provider in 2-3 days or call [phone] *Return to ER if you should have increased confusion dizziness falling or any new, worsening or concerning symptoms Prescriptions: No Action multivitamin [Multiple Vitamins] Tablet 1 tab PO DAILY loratadine [Claritin] 10 mg tablet 10 mg PO DAILY aspirin [Adult Low Dose Aspirin] 81 mg tablet,delayed release (DR/EC) 81 mg PO DAILY metoclopramide HCl [Reglan] 10 mg tablet 10 mg PO Q6H PRN (Reason: nausea and vomiting) Qty: 30 0RF metoclopramide HCl [Reglan] 10 mg tablet 10 mg PO Q6H PRN (Reason: nausea and vomiting) Qty: 30 0RF ondansetron HCl 4 mg tablet 4 mg PO Q6H PRN (Reason: nausea and vomiting) Qty: 7 0RF Referrals: Martha Alvarado PA-C [Primary Care Provider] - Stand Alone Forms: Patient Portal/API
[2023-03-29] MEDS: PANTOPRAZOLE 40 MG VIAL IV (21:41)
[2023-03-29] MEDS: ONDANSETRON 4 MG/2 ML INJ IV (21:42)
--- NOTE | 2023-03-29 21:45 | PC.NURSE ---
Pt son in law, Nadeem, talking loudly in [facility], states where did they get there medical degree? [employer]? Asked Don if there was anything they needed. Don stepped into triage room and berating staff/provider about care. I can't believe nothing is being done. She was not like this a month ago. Talked with Don about process of ED capabilities and care process in finding out reasons why people are not feeling well. Don continued to speak loudly and disrespectfully about staff/provider. Informed Don that verbal abuse against staff will not be tolerated. Pt states I will continue to berate the doctor if I want. At that time Nadeem was asked to leave via triage room door and he did so. Pt and spouse were in [place] bed and could hear everything he was saying. Pt was on her way back to bed from bathroom and states I just want him to leave. Pt and spouse apologetic about Elizabeth behavior. RN Desiree Wheeler also present during this time.
[2023-03-29 22:18] VITALS: BP 171/69; PULSE 77; RESP 16; O2SAT 96
== END 2023-03-29 22:55 | disposition home or self-care (01) ==
PROVIDERS: Emergency Provider Emergency Medicine; PCP Student in an Organized Health Care Education/Training Program
DX: E86.0 Dehydration (principal)
CPT/HCPCS: 36415; 80053; 83690; 85025; 96361; 96374; 96375; 99284; C9113; J2405

== ENCOUNTER → 2023-04-27 15:02 | Outpatient (ROUT) | payer OTHER, SELFPAY ==
[2023-04-27 15:16] LABS: BUN Creatinine Ratio 14.9 (6-22); Blood Urea Nitrogen 10 mg/dL (7-17); Calcium 9.4 mg/dL (8.4-10.2); Carbon Dioxide 27 mmol/L (22-32); Chloride 105 mmol/L (98-107); Estimated Glomerular Filt Rate > 60 mL/min (>60); Glucose 132 mg/dL (80-110); HEMOLYSIS < 15 (0-50); Sodium 139 mmol/L (137-145)
== END ==
PROVIDERS: PCP Student in an Organized Health Care Education/Training Program; Visit Provider Student in an Organized Health Care Education/Training Program
DX: R11.2 Nausea with vomiting, unspecified (principal)
CPT/HCPCS: 80048

== ENCOUNTER 2023-11-17 15:06 | Emergency (ER) | payer MEDICARE, SELFPAY ==
[2023-11-17 15:07] VITALS: BP 177/87; PULSE 80; RESP 16; TEMP 36.7; O2SAT 99; BMI 25.0
--- NOTE | 2023-11-17 15:23 | ED.TRAUMA ---
HPI - Trauma <Chayito Aguilar PA-C - Last Filed: 11/18/23 10:34> General Chief Complaint: Fall Stated Complaint: Mech. Fall Time Seen by Provider: 11/17/23 15:13 History of Present Illness HPI narrative: Patient is a very pleasant 70-year-old female presents to the emergency department today by ambulance. Patient was at home, she was standing in the doorway when she tripped and fell. Patient fell striking the left side of her head on the door jam. She then fell striking her back, twisting her ankle and hitting dorsal aspect of her left foot. She has all left-sided kind of musculoskeletal discomfort and pain. Unknown loss of consciousness. Currently the patient states that she is being worked up for possible Parkinson's, currently taking Parkinson's medications. States she has become unsteady, can not remember her last fall. States she felt a little dazed after the fall was able to crawl kind of get herself up. She waited for her daughter to come, daughter called an ambulance to transfer her to the emergency room department. She took Advil prior to being seen here in the emergency department. She states the Advil is now currently starting to work and she is having some minor relief of her discomfort and pain. Related Data Home Medications Medication Instructions Recorded Confirmed aspirin 81 mg tablet,delayed 81 mg PO DAILY 07/19/19 07/19/19 release (Adult Low Dose Aspirin) loratadine 10 mg tablet (Claritin) 10 mg PO DAILY 07/19/19 07/19/19 multivitamin (Multiple Vitamins 1 tab PO DAILY 07/19/19 07/19/19 tablet) Previous Rx's Medication Instructions Recorded ondansetron HCl 4 mg tablet 4 mg PO Q6H PRN nausea and 02/17/23 vomiting #7 tabs metoclopramide HCl 10 mg tablet 10 mg PO Q6H PRN nausea and 03/22/23 (Reglan) vomiting #30 tabs metoclopramide HCl 10 mg tablet 10 mg PO Q6H PRN nausea and 03/22/23 (Reglan) vomiting #30 tabs tramadol 50 mg tablet 50 mg PO Q8H PRN pain #12 tabs 11/17/23 Allergies Allergy/AdvReac Type Severity Reaction Status Date / Time venom-honey bee Allergy Severe Anaphylaxis Verified 11/17/23 15:25 Penicillins [PENICILLINS] Allergy Unknown Verified 11/17/23 15:25 YELLOW JACKET STINGS Allergy Intermediate HIVES Uncoded 11/17/23 15:25 Review of Systems <Chayito Aguilar PA-C - Last Filed: 11/18/23 10:34> Review of Systems Narrative: Negative except as above ENT Comments: Mild headache Musculoskeletal Comments: Multiple musculoskeletal complaints, left occipital head pain, no cervical pain but will do CT of cervical spine, lower lumbar pain, left dorsal foot pain, left ankle pain. Neurologic Comments: Unknown loss of consciousness she says that she felt a little dazed. Patient History <Chayito Aguilar PA-C - Last Filed: 11/18/23 10:34> Social History Smoking Status: Never smoker Smoking Status: Never smoker alcohol intake frequency: 0-2 drinks per day Substance Use Type: does not use Exam <Chayito Aguilar PA-C - Last Filed: 11/18/23 10:34> Initial Vital Signs Initial Vital Signs: Vital Signs Temperature 98.1 F 11/17/23 15:07 Pulse Rate 80 11/17/23 15:07 Respiratory Rate 16 11/17/23 15:07 Blood Pressure 177/87 H 11/17/23 15:07 Pulse Oximetry 99 11/17/23 15:07 Oxygen Delivery Method Room Air 11/17/23 15:07 Const General: cooperative, healthy appearing, comfortable, well developed, well groomed and anxious Eyes General: Yes appearance normal, both eyes and all related structures Pupils: PERRL EOM: EOM intact bilaterally Resp Auscultation: clear to auscultation bilaterally Cardio Rate: regular rate Rhythm: regular rhythm Heart Sounds: S1 normal and S2 normal Back/Spine/Pelvis Thoracic/Lumbar Spine: pain with thoraco-lumbar ROM and lumbar spinal tenderness Skin Other: Warm pink and dry Neuro General: patient alert, patient awake, patient oriented x3 and oriented Cognition: normal cognition Speech: speech normal Gait: other (Gait not tested due to the fact the patient has severe left foot pain) Extrem Other: Have range of motion, strength, pulses, cap refill preserved in the upper extremities, right lower extremity. Patient does not have pain in the left hip, left femur, left knee, or left tib-fib. Patient has pain in the dorsal aspect of the left foot. Pain with plantar and dorsiflexion. Cap refill is preserved. Pulses are present. There has no soft tissue swelling. There is no obvious ecchymosis. There is no obvious deformity. Patient has discomfort pain along the distal aspect of the left dorsal aspect of the foot. Psych Appearance: grossly normal and well kempt Mental Status: mental status grossly normal Speech and Movement: speech and movement normal Mood: anxious mood Affect: normal affect Attitude: cooperative Thought Process: normal Thought Content: normal Judgment: fair <Soraida Kim DO - Last Filed: 11/19/23 07:33> Initial Vital Signs Initial Vital Signs: Vital Signs Temperature 98.1 F 11/17/23 15:07 Pulse Rate 80 11/17/23 15:07 Respiratory Rate 16 11/17/23 15:07 Blood Pressure 177/87 H 11/17/23 15:07 Pulse Oximetry 99 11/17/23 15:07 Oxygen Delivery Method Room Air 11/17/23 15:07 Procedures <CAITY Jacobs Last Filed: 11/18/23 10:34> Orthopedic Splinting/Casting Injury #1: Additional Comments: Walking boot left lower extremity, walker. Scores <CAITY Jacobs Last Filed: 11/18/23 10:34> GCS Citation: Fifteen Course <CAITY Jacobs Last Filed: 11/18/23 10:34> Orders Ordered: ED Orders 11/17/23 15:23 XR foot LT min 3V Stat XR lumbar spine 2-3V Urgent Patient was given a boot We have giving her a walker We were unable to find any type of support brace for her fracture of her back. Consultations Consultation #1: Orthopedics talked to Dr. Romero on-call. She wanted the patient be placed in a back brace, unfortunately the staff he was unable to locate 1. Patient given a walker Patient placed in a boot Referral placed for the patient Close follow up with ortho Vital Signs Vital signs: Vital Signs - 8 hr 11/17/23 15:07 11/17/23 19:08 Temperature 98.1 F Pulse Rate 80 83 Respiratory Rate 16 16 Blood Pressure 177/87 H 168/74 H Pulse Oximetry 99 99 Oxygen Delivery Method Room Air Room Air Reviewed <Soraida Kim DO - Last Filed: 11/19/23 07:33> Orders Ordered: ED Orders 11/17/23 15:23 XR foot LT min 3V Stat XR lumbar spine 2-3V Urgent Vital Signs Vital signs: Vital Signs - 8 hr 11/17/23 15:07 11/17/23 19:08 Temperature 98.1 F Pulse Rate 80 83 Respiratory Rate 16 16 Blood Pressure 177/87 H 168/74 H Pulse Oximetry 99 99 Oxygen Delivery Method Room Air Room Air MDM - Trauma <Chayito Aguilar PA-C - Last Filed: 11/18/23 10:34> Imaging Data Extremity x-ray #1: Radiologist's Impression: [address] [address] XRay Report Signed Patient: Renee Montes MR#: [id number] : 1945 Acct:[id number] Age/Sex: 78 / F Date of Service: 11/17/23 Loc: ED Accession Number: [id number] Procedure: XR foot LT min 3V Ordering Provider: Chayito Aguilar PA-C PROCEDURE: XR FOOT LT MIN 3V INDICATIONS: Dorsal foot pain after fall TECHNIQUE: 3 views of the foot were acquired. COMPARISON: None. FINDINGS: Bones: Mildly displaced fractures of the 2nd, 3rd and 4th distal metatarsals.. No suspicious bony lesions. Diffusely decreased osseous mineralization. Soft tissues: No tibiotalar joint effusion. Achilles tendon appears normal. IMPRESSION: Mildly displaced fractures of the 2nd, 3rd and 4th distal metatarsals. Dictated by: Tapan Alexander M.D. on 11/17/2023 at 16:03 Approved by: Tapan Alexander M.D. on 11/17/2023 at 16:04 lumbar: Radiologist's Impression: [address] [address] XRay Report Signed Patient: Renee Montes MR#: [id number] : 1945 Acct:[id number] Age/Sex: 78 / F Date of Service: 11/17/23 Loc: ED Accession Number: [id number] Procedure: XR lumbar spine 2-3V Ordering Provider: Jeff,Chayito L PA-C PROCEDURE: XR LUMBAR SPINE 2-3V INDICATIONS: Fall lower lumbar pain TECHNIQUE: 3 views of the lumbar spine were acquired. COMPARISON: Located Within [facility], CT, CT ABDOMEN PELVIS W CON, 03/22/2023, 18:22. FINDINGS: Bones: 5 [id number] vertebrae are present. There is normal bony alignment. Mild superior endplate compression fracture of the L1 vertebral body. Suspected mild compression fracture at L4. Bones are osteopenic. Multilevel disc space narrowing degenerative endplate changes. Multilevel facet hypertrophy. No suspicious bony lesions. Soft tissues: Overlying bowel gas pattern is normal. No suspicious soft tissue calcifications. IMPRESSION: 1. Mild compression fracture of the L1 vertebral body is new when compared to the CT from 03/22/2023. 2. Unchanged chronic compression fracture at L4. Approved by: Tejas Mishra M.D. on 11/17/2023 at 17:24 MDM Narrative Medical decision making narrative: Pleasant 78-year-old female presents to the emergency room department via EMS, brought back to fast track placed in room 1 after she sustained a mechanical fall at home, she tripped and fell against the door frame hitting her left side of her head left shoulder left upper extremity left back when she fell onto a hardwood floor and then twisted her left foot and has left foot pain. Patient was wheeled into room 1 using a wheelchair due to extreme dorsal left foot pain. Patient took Advil prior to being seen here in the emergency room department. The medication was starting to work and she was having some pain relief. Patient denies loss of consciousness she says that she was kind of stunned. Examination is done. Orders as below patient refused her CT scans okay with x-rays. X-ray of the left foot shows mildly displaced distal fractures of the 2nd through 4th metatarsals. Patient is placed in a boot, given a walker, Ortho consult Suggested that the patient's family call primary care doctor to request a referral/prescription for a knee scooter. Prescription for tramadol for pain supportive therapy ED precautions associated with the tramadol. X-ray of the lumbar spine shows a new compression fracture of the L1 that was not seen on her last CT scan, there is no signs or symptoms of retropulsion or neurologic impingement. This was also discussed with Orthopedics. They suggested a brace. However, I asked the feed house supervisor to search the facility for a back brace, unfortunately they were not able to find 1, even know the orthopedic surgeon said that they had them available here at the facility. Unfortunately the patient was discharged with out any type of brace for her new lumbar fracture. I encouraged them to call and follow-up with orthopedics antione for further evaluation. They were also given supportive therapy education associated with reasons to present back to the emergency room department with signs and symptoms of some type of neurologic impact associated with the fracture. Supportive therapy ED precautions were given to the patient upon discharge. CT advised me patient is refusing to have scans. Patient refused head CT Patient refused cervical spine CT Second through 4th metatarsal fracture of the left foot Lumbar x-ray Boot Nonweightbearing Attempted crutches Daughter might need to get her a wheelchair or even a knee scooter Patient only requesting x-rays of her back and foot. Differential diagnosis; fall, intracranial pathology unknown patient refused CT scan of the head and cervical spine. Cervical strain, cervical fracture the patient does not have any upper extremity neurologic symptoms. No pain upon midline evaluation. They did sustained a fall and have some head pain. New compression of the L1 lumbar. And multiple mildly displaced fractures of the left metatarsals. With a referral to ortho. Discharge Plan Departure Patient Disposition: Home Clinical Impression: Metatarsal bone fracture Qualifiers: Encounter type: initial encounter Metatarsal bone: unspecified metatarsal Fracture type: closed Fracture alignment: displaced Laterality: left Qualified Code(s): S92.302A - Fracture of unspecified metatarsal bone(s), left foot, initial encounter for closed fracture Compression of lumbar vertebra Qualifiers: Encounter type: initial encounter Lumbar vertebra fracture level: L1 Qualified Code(s): S32.010A - Wedge compression fracture of first lumbar vertebra, initial encounter for closed fracture Instructions: How to Prevent Falls Activity Restrictions/Additional Instructions: Boot for comfort, nonweightbearing, Bvzu-vrw-hnohozi ibuprofen and Tylenol for discomfort and pain. A prescription for some pain medication has been sent to your pharmacy please be very careful with this due to her Parkinson's your already unstable this medication is only going to make you more unstable. Follow up with Orthopedics Rest, ice, elevation Walker Soft back brace Follow up with ortho Lumbar 1 Mild compression fracture Tramadol prescription quantity of 12 Prescriptions: New tramadol 50 mg tablet 50 mg PO Q8H PRN (Reason: pain) Qty: 12 0RF No Action multivitamin [Multiple Vitamins] Tablet 1 tab PO DAILY loratadine [Claritin] 10 mg tablet 10 mg PO DAILY aspirin [Adult Low Dose Aspirin] 81 mg tablet,delayed release (DR/EC) 81 mg PO DAILY metoclopramide HCl [Reglan] 10 mg tablet 10 mg PO Q6H PRN (Reason: nausea and vomiting) Qty: 30 0RF metoclopramide HCl [Reglan] 10 mg tablet 10 mg PO Q6H PRN (Reason: nausea and vomiting) Qty: 30 0RF ondansetron HCl 4 mg tablet 4 mg PO Q6H PRN (Reason: nausea and vomiting) Qty: 7 0RF Referrals: Martha Alvarado PA-C [Primary Care Provider] - Aisha Romero MD [Physician] - (You are being referred to the provider (or provider group) listed but no appointment has been made. Please call the provider?s office within the next day or two at the phone number above to make an appointment.) Stand Alone Forms: Patient Portal/API ED Sign-out <Soraida Kim DO - Last Filed: 11/19/23 07:33> [facility] Att[facility]: I was available for consultation. I was consulted in regards back brace. Unfortunately we do not have those available to us. Recommended calling ortho. I never saw or evaluated patient myself
--- NOTE | 2023-11-17 17:50 | PC.NURSE ---
patient in the room requesting aid to use the restroom. She stated that she better wait for her daughter since shes not used to men helping her. She wanted to omar her daughter but her phone was not working. Daughter came in to help her moments later.
[2023-11-17 19:08] VITALS: BP 168/74; PULSE 83; RESP 16; O2SAT 99
== END 2023-11-17 19:19 | disposition home or self-care (01) ==
PROVIDERS: Emergency Provider Physician Assistant; PCP Student in an Organized Health Care Education/Training Program
DX: S92.302A Fracture of unspecified metatarsal bone(s), left foot, initial encounter for closed fracture (principal); S32.010A Wedge compression fracture of first lumbar vertebra, initial encounter for closed fracture; W01.198A Fall on same level from slipping, tripping and stumbling with subsequent striking against other object, initial encounter
CPT/HCPCS: 29580; 72100; 73630; 99283; 99284

== ENCOUNTER → 2024-02-01 12:15 | Outpatient (CLI) | payer MEDICARE, SELFPAY ==
--- NOTE | 2024-02-01 12:18 | DI.RAD.S_ITS ---
PROCEDURE: XR ANKLE LT MIN 3V INDICATIONS: Pain in left ankle and joints of left foot TECHNIQUE: 3 views of the ankle were acquired. COMPARISON: None. FINDINGS: Bones: Mild arthrosis. No displaced fracture or dislocation. Calcaneal enthesopathy. Soft tissues: No suspicious calcifications. IMPRESSION: Mild arthrosis. Calcaneal enthesopathy. No acute radiographic abnormality. If there is high concern for further derangement, consider MRI evaluation. Dictated by: Mohan Cuello M.D. on 02/01/2024 at 15:54 Approved by: Mohan Cuello M.D. on 02/01/2024 at 15:55
== END ==
PROVIDERS: PCP Family Medicine; Referring Provider Nurse Practitioner Family; Visit Provider Nurse Practitioner Family
DX: M25.472 Effusion, left ankle (principal); M25.572 Pain in left ankle and joints of left foot; M19.072 Primary osteoarthritis, left ankle and foot; M77.32 Calcaneal spur, left foot
CPT/HCPCS: 73610